=== PATIENT | female | born 1975 | race Caucasian/White ===

== ENCOUNTER 2016-09-17 01:54 | Emergency (ER) | payer OTHER ==
[2016-09-17 02:31] LABS: BASO % 0.3 % (0.1-1.2); EOS # 0.1 10_X3_uL (0.0-0.4); EOS % 0.8 % (0.7-5.8); GRAN # 4.8 10_X3_uL (1.6-6.1); GRAN % 65.3 % (34.0-71.1); HEMATOCRIT 38.9 % (34-45); HEMOGLOBIN 13.5 g/dL (11.2-15.7); LYMPH # 1.9 10_X3_uL (1.2-3.7); LYMPH % 26.5 % (19.3-51.7); MEAN CORPUSCULAR HEMOGLOBIN 30.5 pg (27.0-33.0); MEAN CORPUSCULAR HGB CONC 34.7 g/dL (32.0-36.0); MEAN CORPUSCULAR VOLUME 87.8 fL (79-95); MEAN PLATELET VOLUME 9.6 fl (7.5-11.5); MONO # 0.5 10_X3_uL (0.2-0.9); MONO % 7.1 % (4.7-12.5); PLATELET COUNT 224 x10_3/uL (182-369); RED BLOOD COUNT 4.43 x10_6/uL (3.9-5.2); RED CELL DISTRIBUTION WIDTH 12.7 % (11.7-14.4); WHITE BLOOD COUNT 7.3 x10_3/uL (4.0-10.0)
[2016-09-17 02:46] LABS: ALBUMIN 4.3 gm/dL (3.4-5.0); ALKALINE PHOSPHATASE 78 U/L (50-136); ALT/SGPT 11 U/L (3.5-33.9); AST/SGOT 14 U/L (7.04-26.96); BILIRUBIN,TOTAL 0.27 mg/dL (0.0-1.0); BLOOD UREA NITROGEN 9 mg/dL (7-18); CALCIUM 8.7 mg/dL (8.7-10.7); CARBON DIOXIDE 21 mmol/L (21-32); CREATINE KINASE 78 U/L (21-215); CREATININE 0.6 mg/dL (0.6-1.3); GLUCOSE,RANDOM 97 mg/dL (70-99); POTASSIUM 3.6 mmol/L (3.5-5.1); SODIUM 140 mmol/L (136-145); TOTAL PROTEIN 6.9 gm/dL (6.4-8.2)
== END 2016-09-17 03:46 | disposition short-term general hospital (02) ==
LOC: ER 01:54
PROVIDERS: Internal Medicine
DX: R07.9 Chest pain, unspecified (principal); R06.02 Shortness of breath; I25.2 Old myocardial infarction; Z82.49 Family history of ischemic heart disease and other diseases of the circulatory system; Z79.899 Other long term (current) drug therapy; Z79.02 Long term (current) use of antithrombotics/antiplatelets
CPT/HCPCS: 36415; 71010; 80053; 82550; 82553; 85025; 93005; 99070; 99285-25